=== PATIENT | female | born 1955 | race Caucasian/White ===

== ENCOUNTER 2017-05-25 15:07 | Emergency (ER) | payer OTHER ==
[~2017-05-25] VITALS: Ht 167.6 cm; Wt 81.6 kg
--- NOTE | 2017-05-25 15:20 | NUR ---
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 PER EMS REPORT, PT'S THERAPIST CALLED 911- PT HAS BEEN DRINKING AND STATED" WANTED TO END IT ALL..". PT AAOX3. CALM AND COOPERATIVE. DENIES SI/HI AT THIS TIME. VSS. SAFETY AND COMFORT MEASURES PROVIDED. WILL MONITOR.
[2017-05-25 16:00] LABS: BASOPHILS % (AUTO) 0.5 % (0.0-2.0); EOSINOPHILS # (AUTO) 0.1 /CMM (0.0-0.7); EOSINOPHILS % (AUTO) 2.1 % (0.0-6.0); HEMATOCRIT 44 % (33-45); HEMOGLOBIN 14.6 g/dL (11.5-14.8); LYMPHOCYTES % (AUTO) 19.9 % (20.0-44.0); MEAN CORPUSCULAR HEMOGLOBIN 32 PG (26.0-33.0); MEAN CORPUSCULAR HGB CONC 33 g/dl (31.0-36.0); MEAN CORPUSCULAR VOLUME 96 fL (82-100); MONOCYTES # (AUTO) 0.3 /CMM (0.1-1.30); MONOCYTES % (AUTO) 5.6 % (2.0-12.0); NEUTROPHILS # (AUTO) 3.8 /CMM (1.8-8.9); NEUTROPHILS % (AUTO) 71.9 % (43.0-81.0); PLATELET COUNT (AUTO) 164 /CMM (150-450); RDW COEFFICIENT OF VARIATION 13.4 (11.5-15.0); RED BLOOD CELL COUNT(AUTO) 4.57 MIL/uL (4.0-5.2); WHITE BLOOD COUNT (AUTO) 5.2 K/uL (4.3-11.0)
[2017-05-25 16:02] LABS: APPEARANCE,URINE Clear (CLEAR); BILIRUBIN,URINE Negative (NEGATIVE); BLOOD, URINE Negative Ery/uL (NEGATIVE); COLOR,URINE Yellow (YELLOW); KETONES,URINE Negative (NEGATIVE); LEUKOCYTE ESTERASE ,URINE Negative (NEGATIVE); NITRITE, URINE Negative (NEGATIVE); PH,URINE 5.5 (5.0-8.0); PROTEIN,URINE Negative (NEGATIVE); UGLUCOSE Negative (NEGATIVE); UROBILINOGEN,URINE 0.2 EU/dL (0.2)
--- NOTE | 2017-05-25 16:02 | NUR ---
IV ACCESS STARTED. BLOOD DRAWN FOR LABS.
--- NOTE | 2017-05-25 16:02 | NUR ---
PT ABLE TO AMBULATED WITH A STEADY GAIT. URINE SAMPLE OBTAINED, SENT.
[2017-05-25 16:09] LABS: CALCIUM, SERUM 8.8 mg/dL (8.5-10.1); CREATININE 0.6 mg/dL (0.6-1.3); POTASSIUM 3.9 mmol/L (3.5-5.1)
[2017-05-25 16:16] LABS: ALBUMIN 3.9 g/dL (3.4-5.0); BILIRUBIN,DIRECT 0.1 mg/dL (0.0-0.2); BILIRUBIN,TOTAL 0.3 mg/dL (0.2-1.0); SALICYLATE 0.8 mg/dL (2.8-20.0); TOTAL PROTEIN, SERUM 6.8 g/dL (6.4-8.2)
--- NOTE | 2017-05-25 16:21 | NUR ---
STEFANO AT BS.
--- NOTE | 2017-05-25 18:20 | NUR ---
LATIA RN QUALITY TECH A5T BS FOR EVAL.
--- NOTE | 2017-05-25 21:37 | NUR ---
PROVIDED PT WITH JUICE UPON REQUEST. NOTED CALM AND COMFORTABLY RESTING IN BED. VSS. WILL CONTINUE TO MONITOR.
--- NOTE | 2017-05-25 23:38 | NUR ---
PT REPORT RECIVED FROM [facility] CSATRO FOR MARY, PT IN BED IN NO APPARENT DISTRESS AT THIS TIME, PT ON MONITOR, VSS, WILL CONTINUE TO MONITOR.
--- NOTE | 2017-05-26 00:03 | NUR ---
CALLED [facility] AND WAS TOLD ONE OF THEIR DOCTORS WILL BE CALLING US BACK
--- NOTE | 2017-05-26 00:41 | NUR ---
TALKED TO HARRY FROM [place], ETOH LEVEL MUST BE UNDER 150 FOR THEM TO ACCEPT, TOLD TO CALL HARRY BACK ONCE IT IS AT [phone]
--- NOTE | 2017-05-26 01:30 | NUR ---
PT FACESHEET, LABS, AND HOLD FAXED TO [facility]
--- NOTE | 2017-05-26 02:07 | NUR ---
TALKED TO HARRY AND NO NEWS ON BED PLACEMENT MADE AWARE
--- NOTE | 2017-05-26 02:47 | NUR ---
TALKED TO MIC FROM [place] AND SHE STATES THERE IS STILL NO BED YET, MADE AWARE WILL CONTINUE TO MONITOR.
--- NOTE | 2017-05-26 03:15 | NUR ---
SPOKE TO MIC AGAIN AND STATES "NO UPDATES YET; STILL WAITING".
--- NOTE | 2017-05-26 04:29 | NUR ---
AMBULATED WITH STEADY GAIT TO RESTROOM. AWAITING OF TRANSFER STATUS.
--- NOTE | 2017-05-26 05:19 | NUR ---
TALKED TO JOVANY FROM [facility] AND SHE STATES SHE IS GOING TO RUN THE INFORMATION BY HER HOUSE SUP AND GIVE US A CALL BACK
--- NOTE | 2017-05-26 05:21 | NUR ---
STILL AWAIITNG BED AVAILABILITY. PT AWARE. DENIES ANY SX'S AT THIS TIME.
--- NOTE | 2017-05-26 06:37 | NUR ---
TALKED TO RICKY FROM [place], PT BEING ACCEPTED AT [facility], ACCEPTING MD IS Ayla CORBETT # FOR REPORT [phone]. LESS AN ONE HOUR ETA FOR PICKUP
--- NOTE | 2017-05-26 06:44 | NUR ---
CALLED [facility] AND GAVE REPORT TO BREEZY CASTRO
--- NOTE | 2017-05-26 07:05 | NUR ---
BREAKFSST TRAY ORDERED.
[2017-05-26 07:31] VITALS: BP 169/98
--- NOTE | 2017-05-26 07:31 | NUR ---
REPORT GIVEN TO SARA/CHG FOR MARY.
== END 2017-05-26 07:55 ==
LOC: ER 15:10
DX: R45.851 Suicidal ideations (principal); F10.129 Alcohol abuse with intoxication, unspecified; F41.9 Anxiety disorder, unspecified; F32.9 Major depressive disorder, single episode, unspecified; Z88.6 Allergy status to analgesic agent
CPT/HCPCS: 36415; 71010-TC; 80048-TC; 80076-TC; 80305; 81000-TC; 85025-TC; A4606; G0480; Z7610